=== PATIENT | female | born 1975 | race Caucasian/White ===

== ENCOUNTER → 2021-06-23 | Outpatient (CLI) | payer OTHER ==
--- NOTE | 2021-06-25 14:29 | MM ---
Reason for exam: additional evaluation requested from prior study. Last mammogram was performed 1 year and 8 months ago. History: Taking hormonal contraceptives for 10 years 6 months beginning at age 17. Physical Findings: A clinical breast exam by your physician is recommended on an annual basis and results should be correlated with mammographic findings. [facility] Diagnostic Mammo LT w CAD CC, MLO, ML, spot compression MLO, and spot compression CC view(s) were taken of the left breast. Prior study comparison: October 31, 2019, mammogram, performed at [facility]. October 20, 2018, mammogram, performed at [facility]. October 16, 2018, mammogram, performed at [facility]. June 21, 2016, mammogram, performed at [facility]. The breast tissue is heterogeneously dense. This may lower the sensitivity of mammography. Finding: There are few obscured round, oval masses in the upper outer quadrant, middle posterior position of the left breast. Results were given to the patient verbally at the time of the exam. ASSESSMENT: Incomplete: need additional imaging evaluation, BI-RAD 0 RECOMMENDATION: Ultrasound of the left breast.
--- NOTE | 2021-06-25 14:43 | USB ---
Reason for exam: additional evaluation requested from abnormal screening. History: Taking hormonal contraceptives for 10 years 6 months beginning at age 17. Physical Findings: A clinical breast exam by your physician is recommended on an annual basis and results should be correlated with mammographic findings. US Breast Limited LT Left limited breast ultrasound including focal area of concern, retroareolar and axilla demonstrates a 2.5 x 1.5 x 2.0cm oval, cystic cluster at 2 o'clock or lobular thin walled cysts correspond to mammographic abnormality. Results were given to the patient verbally. ASSESSMENT: Benign, BI-RAD 2 RECOMMENDATION: Routine screening mammogram of both breasts. Manage patient on a clinical basis. Cysts can be aspirated if painful under ultrasound guidance. Patient is due now for a right breast mammogram.
== END | disposition home or self-care (01) ==
LOC: RADMAMWWP 14:11
PROVIDERS: ATTEND Family Medicine
DX: N63.42 Unspecified lump in left breast, subareolar (principal); R92.8 Other abnormal and inconclusive findings on diagnostic imaging of breast
CPT/HCPCS: 77065